=== PATIENT | female | born 1950 | race Caucasian/White ===

== ENCOUNTER 2018-06-15 06:52 | Day surgery (SDC) | payer OTHER ==
[~2018-06-15 06:52] MED LIST: MEMANTINE HCL5 MG; OMEPRAZOLE20 MG; PEPCID20 MG; SYNTHROID88 MCG; TENORMIN25 MG
== END 2018-06-15 13:49 | disposition home or self-care (01) ==
LOC: AMB-ENDOS 06:52
DX: K63.2 Fistula of intestine (principal); L92.8 Other granulomatous disorders of the skin and subcutaneous tissue; K64.1 Second degree hemorrhoids; E03.8 Other specified hypothyroidism; K25.9 Gastric ulcer, unspecified as acute or chronic, without hemorrhage or perforation; K56.690 Other partial intestinal obstruction; K29.61 Other gastritis with bleeding; L02.211 Cutaneous abscess of abdominal wall; Z12.11 Encounter for screening for malignant neoplasm of colon

== ENCOUNTER 2019-07-05 11:13 | Day surgery (SDC) | payer OTHER | END 2019-07-05 15:20 | disposition home or self-care (01) | LOC: AMB-ENDOS 11:13 | DX: K64.1 Second degree hemorrhoids (principal) ==